=== PATIENT | female | born 1955 | race Caucasian/White ===

== ENCOUNTER 2019-05-21 06:35 | Day surgery (SDC) | payer MEDICARE, OTHER ==
[2019-05-14 15:01] LABS: BASOPHILS % (AUTO) 0.8 % (0-1); EOSINOPHILS # (AUTO) 0.1 X10'3 (0-0.9); EOSINOPHILS % (AUTO) 2.5 % (0-6); LYMPHOCYTES # (AUTO) 1.7 X10'3 (1.1-4.8); LYMPHOCYTES % (AUTO) 31.1 % (21-51); MEAN CORPUSCULAR HEMOGLOBIN 29.2 PG (27.0-31.0); MEAN CORPUSCULAR HGB CONC 33.5 g/dL (33.0-36.5); MEAN CORPUSCULAR VOLUME 87.1 FL (78-98); MEAN PLATELET VOLUME 8.7 FL (7.4-10.4); MONOCYTES # (AUTO) 0.5 X10'3 (0-0.9); MONOCYTES % (AUTO) 8.9 % (2-12); NEUTROPHILS # (AUTO) 3.1 X10'3 (1.8-7.7); NEUTROPHILS % (AUTO) 56.7 % (42-75); PRE OP HEMATOCRIT 33.5 % (35.0-45.0); PRE OP HEMOGLOBIN 11.2 g/dL (12.0-16.0); PRE OP PLATELET COUNT 211 X10'3 (140-440); RED BLOOD COUNT 3.85 X10'6 (4.20-5.60); RED CELL DISTRIBUTION WIDTH 14.1 % (11.5-14.5)
[2019-05-14 15:15] LABS: PRE OP INR 0.9 INR; PRE OP PROTIME 9.9 SECONDS (9.0-12.0)
[2019-05-14 15:27] LABS: ALBUMIN 3.5 G/DL (3.4-5.0); ALBUMIN/GLOBULIN RATIO 0.9 (1.1-1.5); ALKALINE PHOSPHATASE 108 IU/L (46-116); BLOOD UREA NITROGEN 39 MG/DL (7-18); BUN/CREATININE RATIO 19.5 (6.6-38.0); CALCIUM 8.7 MG/DL (8.5-10.1); CHLORIDE 103 MMOL/L (99-107); PRE OP ALT 21 U/L (30-65); PRE OP ANION GAP 10 (8-16); PRE OP AST 20 U/L (10-37); PRE OP BILIRUB, TOTAL 0.3 MG/DL (0.0-1.0); PRE OP POTASSIUM 3.9 MMOL/L (3.4-5.1); PRE OP SODIUM 139 MMOL/L (135-145); TOTAL PROTEIN 7.4 G/DL (6.4-8.2); eGFR 25 ML/MIN
[2019-05-14 15:29] LABS: PRE OP GLUCOSE 222 MG/DL (70-104)
[~2019-05-21] VITALS: Ht 152.4 cm; Wt 97.9 kg
[2019-05-21] VITALS (7 sets, daily range): BP systolic 123–139; BP diastolic 54–89
[~2019-05-21 06:35] MED LIST: CALC0.253 PO; ESCI10TA54 PO; FURO20TA4 PO; HYDR-3972 PO; INSU100V9 SQ; LEVO125T PO; MORP-92 PO; OMEP20TA5 PO; PIOG30TA71 PO; USTE45DI IJ; cefazolin/dext.iso 2gm/50ml 50 ML IV ONE
[2019-05-21] MEDS ORDERED: cefazolin/dext.iso 2gm/100 ML IV ONE (07:00)
[2019-05-21] MEDS ORDERED: famotidine 20mg tablet PO ONE (07:00)
[2019-05-21] MEDS ORDERED: normal saline 500ml IV soln 500 ML IV SCH (07:00)
[2019-05-21] MEDS ORDERED: LIDOcaine 0.5% (5mg/ml) 50ml vial ONE (07:30)
[2019-05-21] MEDS ORDERED: BUPIVAcaine/PF 2.5 mg/ml (0.25%) 30ml vial ONE (08:14)
[2019-05-21] MEDS ORDERED: fentaNYL/PF 50MCG/1 ML 2ML syringe ONE ×2 (08:24→08:51)
[2019-05-21] MEDS ORDERED: midazolam 2 mg/2 ml injection ONE ×2 (08:25→08:40)
[2019-05-21] MEDS ORDERED: propofol inj 20 ML IV ONE (09:25)
--- NOTE | 2019-05-21 09:32 | NUR ---
Received from OR via [facility] , accompanied by Anesthesiologist GERARD and report given by Anesthesiolgist. PATIENT WITH 20G PIV IN LEFT UE RUNNING LR @100. DENIES PAIN TO RIGHT WRIST. PATIENT WITH DRESSING TO RIGHT WRIST DRESSING THAT IS CDI. VSS Addendum: 05/21/19 at 0941 by Terrance Cedeno RN, RN Amended: Links added.
[2019-05-21] MEDS ORDERED: ringers solution, lacted 1,000 ML IV SCH (09:36)
[2019-05-21] MEDS ORDERED: morphine 4 MG/ML inj SYRINge IV PRN ×2 (09:40)
[2019-05-21] MEDS ORDERED: ondansetron/PF 4mg/2ml inj IV PRN (09:40)
[2019-05-21] MEDS ORDERED: proCHLORperazine 10 MG/2 ml inj IV PRN (09:40)
[2019-05-21] MEDS ORDERED: meperidine/PF 25mg/ml syringe IV PRN ×3 (09:40)
--- NOTE | 2019-05-21 10:22 | NUR ---
ALL DC CRITERIA HAS BEEN MET. IV TAKEN OUT WITHOUT COMPLICATIONS. ALL INSTRUCTIONS COVERED AND ALL QUESTIONS ANSWERED. DRESSINGS CDI. OUT VIA WHEELCHAIR TO PERSONAL VEHICLE WHERE PATIENT WAS SECURED IN AND DRIVEN HOME BY FAMILY. PATIENT WITH NO COMPLAINTS, 3RD JUICE HAS BEEN CONSUMED. PATIENT BG OF 71 AFTER FIRST JUICE. DRESSED AND OUT VIA WHEELCHAIR TO [employer] VEHICLE. RIGHT WRIST DRESSING IS STILL CD I. Addendum: 05/21/19 at 1031 by Terrance Cedeno RN, RN Amended: Links added.
== END 2019-05-21 09:49 | disposition home or self-care (01) ==
LOC: PAS 06:35
PROVIDERS: ATTEND Orthopaedic Surgery Hand Surgery
DX: G56.01 Carpal tunnel syndrome, right upper limb (principal); M18.11 Unilateral primary osteoarthritis of first carpometacarpal joint, right hand; I12.9 Hypertensive chronic kidney disease with stage 1 through stage 4 chronic kidney disease, or unspecified chronic kidney disease; N18.4 Chronic kidney disease, stage 4 (severe); G89.4 Chronic pain syndrome; E78.5 Hyperlipidemia, unspecified; E03.9 Hypothyroidism, unspecified; E66.01 Morbid (severe) obesity due to excess calories; Z68.41 Body mass index [BMI] 40.0-44.9, adult; E11.42 Type 2 diabetes mellitus with diabetic polyneuropathy; Z88.1 Allergy status to other antibiotic agents; Z88.2 Allergy status to sulfonamides; Z88.8 Allergy status to other drugs, medicaments and biological substances; Z98.84 Bariatric surgery status; Z98.890 Other specified postprocedural states; Z90.710 Acquired absence of both cervix and uterus; Z96.619 Presence of unspecified artificial shoulder joint; Z79.899 Other long term (current) drug therapy
CPT/HCPCS: 25310; 25447; 36415; 64721; 80053; 82948; 85025; 85610; 85730; A6222; J2001; J2250; J2704; J3010; J3490; J7030; J7040; 93005; A4215; A6449; J7120